=== PATIENT | female | born 1980 | race Caucasian/White ===

== ENCOUNTER 2016-08-10 10:58 | Emergency (ER) | payer MEDICAID ==
[2016-08-10 11:03] VITALS: BMI 27.4
[2016-08-10 11:08] VITALS: BP 112/77; PULSE 85; RESP 18; TEMP 98.9; O2SAT 99
[2016-08-10] MEDS ORDERED: DiphenhydrAMINE 50 mg/ml Inj IVP STA (11:33)
[2016-08-10] MEDS ORDERED: Sodium Chloride 0.9% 1,000 ML IV STA (11:33)
[2016-08-10 11:50] LABS: ADD MANUAL DIFF? NO
[2016-08-10 11:58] LABS: BASO # 0.01 K/mm3 (0.0-2.0); BASO % 0.2 % (0.0-3.0); EOS % 0.4 % (1.5-5.0); GRAN % 74.1 % (50.0-68.0); HEMATOCRIT 33.3 % (36.0-48.0); LYMPH # 1.2 (1.2-3.4); LYMPH % 21.6 % (22.0-35.0); MEAN CELL VOLUME 81.4 fL (80.0-105.0); MEAN CORPUSCULAR HEMOGLOBIN 28.4 pg (25.0-35.0); MEAN CORPUSCULAR HGB CONC 34.8 g/dl (31.0-37.0); MEAN PLATELET VOLUME 9.4 fl (7.0-11.0); MONO # 0.2 (0.1-0.6); MONO % 3.7 % (1.0-6.0); PLATELET COUNT 209 10^3/uL (120.0-450.0); RED CELL DISTRIBUTION WIDTH 13.5 % (11.5-14.5); WHITE BLOOD COUNT 5.7 10^3/ul (4.5-11.0)
[2016-08-10 11:59] LABS: URINE BILIRUBIN NEGATIVE (NEGATIVE); URINE BLOOD LARGE (NEGATIVE); URINE GLUCOSE (UA) NEGATIVE (NEGATIVE); URINE KETONE NEGATIVE (NEGATIVE); URINE LEUKOCYTE ESTERASE TRACE Leu/uL (NEGATIVE); URINE PROTEIN 100 mg/dL (<30 mg/dL)
[2016-08-10 12:04] LABS: URINE APPEARANCE SL CLOUDY (CLEAR); URINE COLOR YELLOW (YELLOW)
[2016-08-10 12:09] LABS: ALB/GLOB RATIO 1.5 (1.1-1.8); ALKALINE PHOSPHATASE 81 U/L (38-133); ALT/SGPT 41 U/L (7-56); AST/SGOT 28 U/L (15-39); BILIRUBIN,TOTAL 0.7 mg/dL (0.2-1.3); BLOOD UREA NITROGEN 10 mg/dL (7-21); CALCIUM 9.4 mg/dL (8.4-10.5); CARBON DIOXIDE 25 mmol/L (21-33); CHLORIDE 103 mmol/L (98-107); GFR AFRICAN-AMERICAN > 60; GLUCOSE,RANDOM 99 mg/dL (70-110); INR 0.98 (0.93-1.08); PARTIAL THROMBOPLASTIN TIME 26.1 Seconds (23.7-30.8); POTASSIUM 3.7 mmol/L (3.6-5.0); SODIUM 137 mmol/L (132-148); TOTAL PROTEIN 7.5 g/dL (5.8-8.3)
[2016-08-10 12:13] LABS: URINE BACTERIA MANY (NEG); URINE RBC TNTC /hpf (0-2)
[2016-08-10 12:14] LABS: URINE AMORPHOUS SEDIMENT FEW
--- NOTE | 2016-08-10 12:14 | CT ---
PROCEDURE: CT HEAD WITHOUT CONTRAST. HISTORY: [facility] COMPARISON: None available. TECHNIQUE: Axial computed tomography images were obtained through the head/brain without intravenous contrast. Radiation dose: Total exam DLP = 725 mGy-cm. This CT exam was performed using one or more of the following dose reduction techniques: Automated exposure control, adjustment of the mA and/or kV according to patient size, and/or use of iterative reconstruction technique. FINDINGS: HEMORRHAGE: No intracranial hemorrhage. BRAIN: No mass effect or edema. No atrophy or chronic microvascular ischemic changes. VENTRICLES: Unremarkable. No hydrocephalus. CALVARIUM: Unremarkable. PARANASAL SINUSES: Unremarkable as visualized. No significant inflammatory changes. MASTOID AIR CELLS: Unremarkable as visualized. No inflammatory changes. OTHER FINDINGS: None. IMPRESSION: Normal CT of the Head.
--- NOTE | 2016-08-10 12:19 | ED PDOC ---
Arrival/HPI - General Chief Complaint: GI Problem Time Seen by Provider: 08/10/16 11:26 Historian: Patient - History of Present Illness Narrative History of Present Illness (Text): 08/10/16 12:16 35 year old female presents to the emergency department with vomiting, headache since this morning, and numbness on the lips. Patient states she saw her PMD and was sent here for evaluation and imaging. Patient states she is on her period right now. Denies any fevers or other complaints of pain. Time/Duration: 24 hours Symptom Onset: Sudden Symptom Course: Unchanged Modifying Factors (Text): None Past Medical History - Provider Review Nursing Documentation Reviewed: Yes - Infectious Disease Hx of Infectious Diseases: None - Psychiatric Hx Substance Use: No - Surgical History Hx Appendectomy: Yes Hx Tubal Ligation: Yes - Anesthesia Hx Anesthesia Reactions: No Hx Malignant Hyperthermia: No Family/Social History - Physician Review Nursing Documentation Reviewed: Yes Family/Social History: Unknown Family HX Smoking Status: Never Smoked Hx Alcohol Use: No Hx Substance Use: No Allergies/Home Meds Allergies/Adverse Reactions: Allergies No Known Allergies Allergy (Verified 03/19/16 18:52) Review of Systems - Physician Review All systems were reviewed & negative as marked: Yes - Review of Systems Gastrointestinal: Vomiting Neurological: Headache, Other (Numbness on the lips) Physical Exam Vital Signs Reviewed: Yes Vital Signs Temp Pulse Resp BP Pulse Ox 08/10/16 10:59 98.9 F 85 18 112/77 99 Temperature: Afebrile Blood Pressure: Normal Pulse: Regular Respiratory Rate: Normal Appearance: Positive for: Well-Appearing, Non-Toxic, Comfortable Pain Distress: None Mental Status: Positive for: Alert and Oriented X 3 - Systems Exam Head: Present: Atraumatic, Normocephalic Pupils: Present: PERRL Extroacular Muscles: Present: EOMI Conjunctiva: Present: Normal Mouth: Present: Moist Mucous Membranes Neck: Present: Normal Range of Motion Respiratory/Chest: Present: Clear to Auscultation, Good Air Exchange. No: Respiratory Distress, Accessory Muscle Use Cardiovascular: Present: Regular Rate and Rhythm, Normal S1, S2. No: Murmurs Abdomen: Present: Normal Bowel Sounds. No: Tenderness, Distention, Peritoneal Signs Back: Present: Normal Inspection Upper Extremity: Present: Normal Inspection. No: Cyanosis, Edema Lower Extremity: Present: Normal Inspection. No: Edema Neurological: Present: GCS=15, CN II-XII Intact, Speech Normal, Motor Func Grossly Intact, Normal Sensory Function, Normal Cerebellar Funct, Norm Deep Tendon Reflexes, Gait Normal, Memory Normal, Normal 2Pt Descrimination Skin: Present: Warm, Dry, Normal Color. No: Rashes Psychiatric: Present: Alert, Oriented x 3, Normal Insight, Normal Concentration Medical Decision Making ED Course and Treatment: Impression: 35 year old female presents to the emergency department with vomiting, headache since this morning, and numbness on the lips. r.o intracranial pathology vs atypical migraine. Plan: -- CT Head -- Benadryl, Reglan -- IV fluids -- Labs -- Reassess and disposition Progress Notes: CT Head Quenching Car Operator: Quinton [place] MD IMPRESSION: Normal CT of the Head 08/10/16 12:23 On reevaluation, patient states she feels better, asking for discharge. dr rocky sanchez for update. 08/10/16 12:54 - Lab Interpretations Lab Results: 08/10/16 11:50 08/10/16 11:50 Lab Results 08/10/16 11:50: Urine Color Yellow, Urine Appearance Sl cloudy, Urine pH 6.0, Ur Specific [place] 1.025, Urine Protein 100 H, Urine Glucose (UA) Negative, Urine Ketones Negative, Urine Blood Large H, Urine Nitrate Negative, Urine Bilirubin Negative, Urine Urobilinogen 1.0 H, Ur Leukocyte Esterase Trace H, Urine RBC Tntc, Urine WBC 2 - 5, Ur Epithelial Cells 4 - 5, Amorphous Sediment Few, Urine Bacteria Many, Urine Other Fiber, Urine HCG, Qual Negative 08/10/16 11:50: Sodium 137, Potassium 3.7, Chloride 103, Carbon Dioxide 25, Anion Gap 13, BUN 10, Creatinine 0.6, Est GFR ( Amer) > 60, Est GFR (Non- Af Amer) > 60, Random Glucose 99, Calcium 9.4, Total Bilirubin 0.7, AST 28, ALT 41, Alkaline Phosphatase 81, Total Protein 7.5, Albumin 4.5, Globulin 3.0, Albumin/Globulin Ratio 1.5 08/10/16 11:50: PT 10.6, INR 0.98, APTT 26.1 08/10/16 11:50: WBC 5.7, RBC 4.09, Hgb 11.6 L, Hct 33.3 L, MCV 81.4, MCH 28.4, MCHC 34.8, RDW 13.5, Plt Count 209, MPV 9.4, Gran % 74.1 H, Lymph % (Auto) 21.6 L, [place] % (Auto) 3.7, Eos % (Auto) 0.4 L, Baso % (Auto) 0.2, Gran # 4.20, Lymph # 1.2, [place] # 0.2, Eos # 0.0, Baso # 0.01 - RAD Interpretation Radiology Orders: 08/10/16 11:30 HEAD W/O CONTRAST [CT] Stat - Medication Orders Current Medication Orders: Discontinued Medications Diphenhydramine HCl (Benadryl) 25 mg IVP STAT STA Stop: 08/10/16 11:34 Last Admin: 08/10/16 11:48 Dose: 25 mg Sodium Chloride (Sodium Chloride 0.9%) 1,000 mls @ 999 mls/hr IV .Q1H1M STA Stop: 08/10/16 12:33 Last Admin: 08/10/16 11:49 Dose: 999 mls/hr Metoclopramide HCl (Reglan) 10 mg IVP STAT STA Stop: 08/10/16 11:34 Last Admin: 08/10/16 11:49 Dose: 10 mg - Ambreenibe Statement The provider has reviewed the documentation as recorded by the Manjula Higginbotham Provider Scribe Attestation: All medical record entries made by the Manjula were at my direction and personally dictated by me. I have reviewed the chart and agree that the record accurately reflects my personal performance of the history, physical exam, medical decision making, and the department course for this patient. I have also personally directed, reviewed, and agree with the discharge instructions and disposition. Disposition/Present on Arrival - Present on Arrival Any Indicators Present on Arrival: No History of DVT/PE: No History of Uncontrolled Diabetes: No Urinary Catheter: No History of Decub. Ulcer: No History Surgical Site Infection Following: None - Disposition Have Diagnosis and Disposition been Completed?: Yes Diagnosis: Headache Disposition: HOME/ ROUTINE Disposition Time: 12:55 Patient Problems: Current Active Problems Problem Status Onset Headache Acute Condition: STABLE Discharge Instructions (ExitCare): Acute Headache (ED) Additional Instructions: please followup with your doctor. return to er with worsening symptoms or concerns. Prescriptions: Acetaminophen/Butalbital/Caf [Fioricet] 1 tab PO Q8 PRN #20 tab PRN Reason: Headache Referrals: Radha Camacho MD [Primary Care Provider] - Follow up with primary Kg Castillo MD [Staff Provider] - Follow up with primary Sanjeev Castillo MD [Staff Provider] - Follow up with primary
== END 2016-08-10 14:44 | disposition home or self-care (01) ==
LOC: ED 10:58
DX: R51 Headache (principal)
CPT/HCPCS: 70450; 80053; 81001; 84703; 85025; 85610; 85730; 87086; 96361; 96374; 96375; 99283; J1200; J2765; J7040